=== PATIENT | female | born 1995 | race Caucasian/White ===

== ENCOUNTER 2020-06-16 09:32 | Outpatient (REF) | payer OTHER, SELFPAY | END 2020-06-16 09:33 | disposition home or self-care (01) | LOC: HO.LAB 09:32 | PROVIDERS: Visit Provider Internal Medicine | DX: Z20.822 Contact with and (suspected) exposure to COVID-19 (principal) | CPT/HCPCS: 36415; C9803; U0003 ==

== ENCOUNTER 2021-07-03 12:01 | Outpatient (REF) | payer MEDICAID, SELFPAY ==
[2021-07-03 14:45] LABS: TSH reflex Free T4 0.57 uIU/mL (0.32-4.0)
[2021-07-03 14:57] LABS: Vitamin B12 536 pg/mL (200-900)
[2021-07-05 14:58] LABS: H Pylori Breath Test Positive (Negative)
[2021-07-07 09:02] LABS: Transglutaminase Ab IgG <1.0 U/mL; Transglutaminase IgA <1.0 U/mL
[2021-07-08 16:02] LABS: Vitamin D 25-OH, D2 <4 ng/mL; Vitamin D 25-OH, D3 17 ng/mL; Vitamin D 25-OH, Total 17 ng/mL (30-100)
== END 2021-07-03 12:02 | disposition home or self-care (01) ==
LOC: HO.LAB 12:01
PROVIDERS: PCP Registered Nurse Community Health; Referring Provider Registered Nurse; Visit Provider Nurse Practitioner Family
DX: R10.11 Right upper quadrant pain (principal); R14.0 Abdominal distension (gaseous); E55.9 Vitamin D deficiency, unspecified; K21.9 Gastro-esophageal reflux disease without esophagitis; K58.2 Mixed irritable bowel syndrome; K59.1 Functional diarrhea
CPT/HCPCS: 36415; 82306; 82607; 82746; 83013; 84443; 86364; 99202

== ENCOUNTER → 2021-08-11 13:59 | Outpatient (BNVA) | payer MEDICAID, SELFPAY | PROVIDERS: PCP Registered Nurse Community Health; Referring Provider Registered Nurse; Visit Provider Nurse Practitioner Family | DX: K58.2 Mixed irritable bowel syndrome (principal); K21.9 Gastro-esophageal reflux disease without esophagitis; R19.7 Diarrhea, unspecified | CPT/HCPCS: 99212 ==

== ENCOUNTER 2021-09-17 09:11 | Day surgery (SDC) | payer MEDICAID, SELFPAY ==
[2021-09-11 15:48] VITALS: BMI 26.9
--- NOTE | 2021-09-16 09:34 | P.CONAN_ITS ---
Documented by User: Gladys Martinez NP 09/16/21 09:34 HPI - Anesthesia Eval Consult details Narrative: 26yo F for Upper Endoscopy [facility] Past Medical History Medical History GERD (gastroesophageal reflux disease) IBS (irritable bowel syndrome) Intermittent depression Intermittent dysphagia No pertinent past medical history Family History Family History (Updated 08/11/21 @ 14:07 by SHANNAN Stewart) Mother H/O heart surgery Sister Asthma Brother Asthma Paternal Grandfather Cancer Paternal Grandmother Constipation Surgical History Surgical History No pertinent past surgical history Social History Social History Household Members: Family Alcohol intake: never Patient Tobacco Use Status: Never used Tobacco Meds Allergies Allergy/AdvReac Type Severity Reaction Status Date / Time No Known Allergies Allergy Verified 09/11/21 15:44 Home Medications Medication Instructions Recorded Confirmed Last Taken Type etonogestrel 68 mg subdermal mg SUBDERMAL 09/11/21 09/11/21 Unknown History implant (Nexplanon) Exam Exam Date and Time: September 16, 2021 0934 Height,Weight and Vital Signs: Height 5 ft 2 in Weight 66.678 kg Assessment and Plan Assessment Anesthesia Assessment: Chart Reviewed Documented by User: Michael Lin MD 09/17/21 16:47 [facility] Past Medical History Medical History GERD (gastroesophageal reflux disease) IBS (irritable bowel syndrome) Intermittent depression Intermittent dysphagia No pertinent past medical history Functional capacity: independent ambulation Family History Family History (Updated 08/11/21 @ 14:07 by SHANNAN Stewart) Mother H/O heart surgery Sister Asthma Brother Asthma Paternal Grandfather Cancer Paternal Grandmother Constipation Family history of problems with anesthesia: No Surgical History Surgical History No pertinent past surgical history History of Problems with Anesthesia: No Social History Social History Household Members: Family Alcohol intake: never Patient Tobacco Use Status: Never used Tobacco Meds Allergies Allergy/AdvReac Type Severity Reaction Status Date / Time No Known Allergies Allergy Verified 09/11/21 15:44 Home Medications Medication Instructions Recorded Confirmed Last Taken Type etonogestrel 68 mg subdermal mg SUBDERMAL 09/11/21 09/11/21 Unknown History implant (Nexplanon) Exam Airway Mallampati Class: II TM Dist: >3cm Neck ROM: Full Loose/Missing/Broken Teeth: No Heart: RRR Lungs: b/l breath sounds Assessment and Plan Assessment Anesthesia Assessment: Anesthesia Plan Discussed Final Anesthetic Review Family History of Problems with Anesthesia: No History of Problems with Anesthesia: No NPO: Yes ASA Class: II Final Preanesthetic Review: Meds/Allgs Chart Reviewed, Consent Obtained/Reviewed and Anes Risks/Benef Reviewed Patient Risk: Intermediate Procedure Risk: Intermediate Anesthetic Plan Anesthetic Plan: MAC: Disposition: Standard PACU
--- NOTE | 2021-09-17 09:24 | MHC.SHP ---
Pre-Procedural Eval Section A Date of Service: 09/17/21 Section B Chief Complaint: GERD Details of Present Illness: symptoms much improved with h pylori treatment Relevant Family History (Specify if Yes): No Relevant Social History: None Present Medications: see Short Stay Collaborative assessment Medical History: Significant History (GERD (gastroesophageal reflux disease) IBS (irritable bowel syndrome) Intermittent depression Intermittent dysphagia) History of Previous Operations: No relevant previous surgery Allergies: Allergies Allergy/AdvReac Type Severity Reaction Status Date / Time No Known Allergies Allergy Verified 09/11/21 15:44 Review of Systems Sugical H&P ROS: Negative: Constitution, Cardiovascular, Respiratory, Neurological, Psychiatric, Hem-Onc, Allergic/Immunologic, Gastrointestinal, Genitourinary, Musculoskeletal, Integumentary, Endocrine and Eyes/Ears/Nose/Throat Exam Surgical H&P Exam: Normal: HEENT, Normal: Heart, Normal: Lungs, Normal: Extremities, Normal: Abdomen, Normal: Skin and Normal: Neurological Plan Diagnosis/Plan: Unchanged I have reviewed the history and physical and performed a pertinent physical examination on my patient. No changes have occurred unless specified.
[2021-09-17 09:42] LABS: UPreg QC Valid YES; Urine Pregnancy NEGATIVE (NEGATIVE)
[2021-09-17 10:07] VITALS: BP 116/71; PULSE 74; RESP 18; TEMP 37.1; O2SAT 98
[2021-09-17] MEDS: Lactated Ringers 1,000 ML 100 ML IVCONT (10:07)
--- NOTE | 2021-09-17 10:26 | PM.OP ---
Brief Operative Note Date of Service: 09/17/21 Pre-op diagnosis: GERD and dysphagia, hx of h pylori Post-op diagnosis: same Procedure: see op note Surgeon: Gerard Metzger MD Anesthesia: MAC Was an Cnc Laser Operator used for this Procedure?: No Estimated blood loss (mL): 0 Condition: stable Disposition: PACU
--- NOTE | 2021-09-17 10:27 | W.PM.OPN ---
Operative Note Operative Note Date of Service: 09/17/21 Narrative: Procedure Description: EGD Indication: GERD and dysphagia, hx of h pylori Anesthesia: MAC FLEXIBLE TRANSORAL UPPER GASTROINTESTINAL ENDOSCOPY UPPER ENDOSCOPY Consent: Indications for the procedure and potential complications of bleeding, perforation, reaction to medications and missed diagnosis were discussed with the patient and informed consent was obtained. Instrument: Olympus GIF H 190 J mid size upper endoscope Monitoring: Vital signs and clinical assessment, continuous EKG monitoring, Pulse oximetry, Carbon Dioxide monitoring and blood pressure monitoring were done throughout the procedure. Procedure: The patient was placed in the left lateral decubitis position and pre-procedure medications were administered and a bite block was placed. The endoscope was inserted into the mouth and advanced under direct vision to the third part of duodenum. A careful inspection was made as the upper endoscope was withdrawn including a retroflexed examination of the proximal stomach; Findings and interventions are described below. Findings: Larynx:normal Esophagus: GE junction at 40 cm, diaphragm hiatus at 40 cm, no varices or esophagitis. biopsies taken from GEJ and random esophagus in separate jars Stomach: Normal mucosa. Biopsies were obtained. Grade 2 flap valve on retroflexed examination of the cardia. Duodenum: Normal bulb and descending duodenum, bx taken Intervention: Biopsies as noted above Impression/Findings: normal PLAN: cont with omeprazole since helping, can titrate dose depending on clinical response
[2021-09-17 10:31] VITALS: BP 89/49; PULSE 68; RESP 16; TEMP 36.8; O2SAT 98
[2021-09-17 10:51] VITALS: BP 123/66; PULSE 66; RESP 18; TEMP 36.8; O2SAT 100
== END 2021-09-17 11:28 | disposition home or self-care (01) ==
PROVIDERS: Nurse Practitioner; PCP Registered Nurse Community Health; Visit Provider Internal Medicine Gastroenterology
PROC: 0DJ08ZZ Inspection of Upper Intestinal Tract, Via Natural or Artificial Opening Endoscopic (ICD-10-PCS; CPT 43235; principal; 2021-09-17 10:10)
DX: K21.9 Gastro-esophageal reflux disease without esophagitis (principal); R13.10 Dysphagia, unspecified; K58.2 Mixed irritable bowel syndrome; K44.9 Diaphragmatic hernia without obstruction or gangrene; Z86.19 Personal history of other infectious and parasitic diseases; F32.89 Other specified depressive episodes; Z79.899 Other long term (current) drug therapy
CPT/HCPCS: 43239; 81025; 88305; 88342; J3010

== ENCOUNTER → 2021-10-06 15:19 | Outpatient (BNVA) | payer MEDICAID, SELFPAY | PROVIDERS: PCP Registered Nurse Community Health; Referring Provider Registered Nurse Community Health; Visit Provider Nurse Practitioner Family | DX: K21.9 Gastro-esophageal reflux disease without esophagitis (principal); K58.2 Mixed irritable bowel syndrome | CPT/HCPCS: 99212 ==

== ENCOUNTER 2021-10-21 08:24 | Outpatient (REF) | payer MEDICAID, SELFPAY ==
[2021-10-23 11:51] LABS: H Pylori Breath Test Negative (Negative)
== END 2021-10-21 08:25 | disposition home or self-care (01) ==
LOC: CF 08:24
PROVIDERS: PCP Registered Nurse Community Health; Referring Provider Registered Nurse Community Health; Visit Provider Nurse Practitioner Family
DX: E55.9 Vitamin D deficiency, unspecified (principal); Z11.0 Encounter for screening for intestinal infectious diseases
CPT/HCPCS: 36415; 82306; 83013; 86140

== ENCOUNTER 2021-10-21 08:57 | Outpatient (REF) | payer MEDICAID, SELFPAY ==
[2021-10-21 10:00] LABS: C Reactive Protein 0.05 mg/dL (< or = 0.50)
[2021-10-27 14:36] LABS: Vitamin D 25-OH, D2 <4 ng/mL; Vitamin D 25-OH, D3 40 ng/mL; Vitamin D 25-OH, Total 40 ng/mL (30-100)
== END 2021-10-21 08:58 | disposition home or self-care (01) ==
LOC: HO.LAB 08:57
PROVIDERS: Visit Provider Nurse Practitioner Family
DX: E55.9 Vitamin D deficiency, unspecified (principal); K58.9 Irritable bowel syndrome, unspecified
CPT/HCPCS: 36415; 82306; 86140

== ENCOUNTER → 2022-01-11 08:08 | Outpatient (BNVA) | payer MEDICAID, SELFPAY | PROVIDERS: Visit Provider Nurse Practitioner Family | DX: K21.9 Gastro-esophageal reflux disease without esophagitis (principal); K58.9 Irritable bowel syndrome, unspecified | CPT/HCPCS: 99212 ==

== ENCOUNTER → 2022-05-03 08:52 | Outpatient (BNVA) | payer MEDICAID, SELFPAY | PROVIDERS: Visit Provider Nurse Practitioner Family | DX: K21.9 Gastro-esophageal reflux disease without esophagitis (principal); K58.9 Irritable bowel syndrome, unspecified | CPT/HCPCS: 99212 ==

== ENCOUNTER 2022-08-31 09:09 | Outpatient (REF) | payer MEDICAID, SELFPAY | END 2022-08-31 09:10 | disposition home or self-care (01) | LOC: HO.LAB 09:09 | PROVIDERS: Visit Provider Nurse Practitioner Family | DX: K21.9 Gastro-esophageal reflux disease without esophagitis (principal); K58.9 Irritable bowel syndrome, unspecified | CPT/HCPCS: 36415; 86003; 99212 ==

== ENCOUNTER → 2022-12-01 15:52 | Outpatient (BNVA) | payer MEDICAID, SELFPAY | PROVIDERS: Visit Provider Nurse Practitioner Family | DX: K21.9 Gastro-esophageal reflux disease without esophagitis (principal); K58.9 Irritable bowel syndrome, unspecified | CPT/HCPCS: 99212 ==